=== PATIENT | male | born 1930 | race Caucasian/White ===

== ENCOUNTER 2017-10-29 05:57 | Emergency (ER) | payer MEDICARE ==
[~2017-10-29] VITALS: Ht 185.4 cm; Wt 83.9 kg
--- NOTE | 2017-10-29 07:25 | Diagnostic Imaging Report ---
History: Fall, pain Comparison studies:None Technique: Axial images were obtained from the brain and cervical spine. Coronal and sagittal images reconstructed from the axial data. Intravenous contrast: None Findings: Head CT: Scalp/skull: No abnormalities. No fractures, blastic or lytic lesions. Extra-axial spaces: No masses or fluid collections. Brain sulci: Mildly prominent. Ventricles: Mild compensatory dilatation. No hydrocephalus. Parenchyma: Few hypodensities in the supratentorial white matter are small vessel ischemic changes. No masses, hemorrhage, acute or chronic cortical vascular insults. Sellar/suprasellar region: No abnormalities. Craniocervical junction: Patent foramen magnum. No Chiari one malformation. Incidental findings: Atherosclerotic calcifications in the carotid siphons and vertebral arteries. Bilateral cataract surgery changes . Cervical spine CT: Fractures: None. Soft tissues: No gross abnormalities. Calcification of the ligamentum nuclei. Atlantoaxial articulation: Degenerative changes given by obliterated predental space, sclerosis and marginal osteophytes. Alignment: Straightening of the normal lordosis. No scoliosis. Cervicomedullary junction: No abnormalities. Patent foramen magnum. Vertebrae: No infection or neoplasm. Degenerative changes: None. Incidental findings: At the L3-4, left uncinate process hypertrophy and bilateral facet hypertrophy results in mild right and moderate left foraminal narrowing without significant canal stenosis. At C4-5, bilateral uncinate process and facet hypertrophy results in no significant canal stenosis and mild bilateral foraminal narrowing. At C5-6, bilateral uncinate process hypertrophy and facet hypertrophy results in no significant canal stenosis and moderate bilateral foraminal narrowing. Impression: Head CT: 1. No acute intracranial abnormality. 2. Mild chronic microvascular ischemic changes of the white matter and mild age-related volume loss. Cervical spine CT: 1. No acute abnormalities. 2. Cannot exclude ligament, spinal cord and or vascular abnormalities on the basis of this examination. Signed by: DR Varghese Garzon M.D. on 10/29/2017 7:21 AM
[2017-10-29] MEDS ORDERED: ACETAMINOPHEN 325 MG TAB PO PRN (09:45)
[2017-10-29] MEDS ORDERED: IBUPROFEN 200 MG TAB PO PRN (09:45)
[2017-10-29] MEDS ORDERED: ONDANSETRON HCL 4 MG ORAL DISINTEGRATING TAB PO PRN (09:45)
[2017-10-29] MEDS ORDERED: HYDROCODONE/APAP 7.5MG-325MG 1 EA TAB PO PRN (09:45)
[2017-10-29] MEDS ORDERED: CLONIDINE HCL 0.1 MG TAB PO PRN (09:45)
[2017-10-29 10:38] LABS: BASOPHILS % 0.2 % (0.0-1.0); EOSINOPHILS # (AUTO) 0.2 (0.0-0.4); EOSINOPHILS % 4.3 % (0.0-6.0); HEMATOCRIT 29.9 % (38.2-49.6); HEMOGLOBIN 10.2 g/dL (14.0-18.0); LYMPHOCYTES # (AUTO) 1.6 (1.0-3.2); LYMPHOCYTES % 33.5 % (18.0-39.1); MEAN CORPUSCULAR HEMOGLOBIN 34.7 pg (28-32); MEAN CORPUSCULAR HGB CONC 34.1 g/dL (31-35); MEAN CORPUSCULAR VOLUME 101.7 fL (81-99); MONOCYTES # (AUTO) 0.5 (0.2-0.8); MONOCYTES % 11.1 % (4.4-11.3); NEUTROPHILS # (AUTO) 2.5 (2.1-6.9); NEUTROPHILS % 50.5 % (38.7-80.0); PLATELET COUNT 120 x10e3/uL (140-360); RED BLOOD COUNT 2.94 x10e6/uL (4.3-5.7); RED CELL DISTRIBUTION WIDTH 13.7 % (11.7-14.4)
[2017-10-29 10:43] LABS: INR 1.24; PROTHROMBIN TIME 14.7 seconds (11.9-14.5)
[2017-10-29 10:44] LABS: PARTIAL THROMBOPLASTIN TIME 25.8 seconds (23.8-35.5)
[2017-10-29 10:57] LABS: ALBUMIN 3.7 g/dL (3.5-5.0); ALBUMIN/GLOBULIN RATIO 1.5 (0.8-2.0); ALKALINE PHOSPHATASE 82 IU/L (40-150); ANION GAP 13.1 mmol/L (8-16); BLOOD UREA NITROGEN 21 mg/dL (7-26); BUN/CREATININE RATIO 19 (6-25); CALCIUM 8.9 mg/dL (8.4-10.2); CARBON DIOXIDE 27 mmol/L (22-29); CHLORIDE 104 mmol/L (98-107); CREATINE KINASE 114 IU/L (30-200); CREATININE, SERUM 1.08 mg/dL (0.72-1.25); EST GLOMERULAR FILTRATION RATE > 60 ML/MIN (60-); GLUCOSE 89 mg/dL (74-118); POTASSIUM 4.1 mmol/L (3.5-5.1); SODIUM 140 mmol/L (136-145)
[2017-10-29 10:59] LABS: ALANINE AMINOTRANSFERASE < 6 IU/L (0-55)
--- NOTE | 2017-10-29 11:17 | Diagnostic Imaging Report ---
PROCEDURE: A single AP view of the chest. COMPARISON: None. INDICATIONS: FALL FINDINGS: Lines/tubes: None. Lungs: Low lung volumes. Perihilar and interstitial opacities are present. Left retrocardiac opacity. Pleura: Possible small left pleural effusion. Heart and mediastinum: Mild enlargement of the cardiomediastinal silhouette. Atherosclerotic aortic calcifications. Bones: No acute bony abnormality. Status post median sternotomy. IMPRESSION: No evidence of pneumothorax or displaced rib fracture. Low lung volumes with likely superimposed pulmonary interstitial edema. Left retrocardiac opacity can represent atelectasis or pneumonia in the appropriate clinical context. Dictated by: BLANCO SANDY M.D. on 10/29/2017 at 7:44 Electronically approved by: BLANCO SANDY M.D. on 10/29/2017 at 7:44
--- NOTE | 2017-10-29 11:17 | Diagnostic Imaging Report ---
PROCEDURE:X-RAY LEFT HUMERUS, TWO OR MORE VIEWS COMPARISON:None. INDICATIONS:UPPER ARM PAIN, FALL FINDINGS: No evidence of fracture or malalignment. Mild degenerative changes of the left glenohumeral joint and moderate degenerative changes of the left acromioclavicular joint. The soft tissues are unremarkable. Degenerative changes are present at the elbow, incompletely evaluated. CONCLUSION: No acute osseous abnormality. 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 Dictated by: BLANCO SANDY M.D. on 10/29/2017 at 7:47 Electronically approved by: BLANCO SANDY M.D. on 10/29/2017 at 7:47
--- NOTE | 2017-10-29 11:17 | Diagnostic Imaging Report ---
PROCEDURE:X-RAY PELVIS, AP VIEW COMPARISON:None. INDICATIONS:FALL FINDINGS: No evidence of fracture, malalignment, or soft tissue abnormality. Moderate degenerative changes of bilateral hips and sacroiliac joints, as well as the lower lumbar spine and pubic symphysis. CONCLUSION: No evidence of fracture or malalignment. Dictated by: BLANCO SANDY M.D. on 10/29/2017 at 7:50 Electronically approved by: BLANCO SANDY M.D. on 10/29/2017 at 7:50
== END 2017-10-29 12:56 | disposition home or self-care (01) ==
LOC: ER 05:57
DX: S00.83XA Contusion of other part of head, initial encounter (principal); S00.412A Abrasion of left ear, initial encounter; S50.12XA Contusion of left forearm, initial encounter; W17.89XA Other fall from one level to another, initial encounter; Y92.008 Other place in unspecified non-institutional (private) residence as the place of occurrence of the external cause; G20 Parkinson's disease; F02.80 Dementia in other diseases classified elsewhere, unspecified severity, without behavioral disturbance, psychotic disturbance, mood disturbance, and anxiety; I25.10 Atherosclerotic heart disease of native coronary artery without angina pectoris; E78.5 Hyperlipidemia, unspecified
CPT/HCPCS: 36415; 70450; 71045; 72125; 72170; 80053; 82550; 82553; 84484; 85025; 85610; 85730; 93005; 99284

== ENCOUNTER 2017-11-23 11:51 | Emergency (ER) | payer MEDICARE ==
[~2017-11-23] VITALS: Ht 185.4 cm; Wt 83.9 kg
[2017-11-23 12:26] LABS: BASOPHILS % 0.4 % (0.0-1.0); EOSINOPHILS # (AUTO) 0.5 (0.0-0.4); HEMATOCRIT 28.4 % (38.2-49.6); HEMOGLOBIN 9.7 g/dL (14.0-18.0); LYMPHOCYTES # (AUTO) 1.5 (1.0-3.2); LYMPHOCYTES % 31.5 % (18.0-39.1); MEAN CORPUSCULAR HEMOGLOBIN 35.1 pg (28-32); MEAN CORPUSCULAR HGB CONC 34.2 g/dL (31-35); MEAN CORPUSCULAR VOLUME 102.9 fL (81-99); MONOCYTES # (AUTO) 0.5 (0.2-0.8); MONOCYTES % 10.4 % (4.4-11.3); NEUTROPHILS # (AUTO) 2.3 (2.1-6.9); NEUTROPHILS % 46.7 % (38.7-80.0); PLATELET COUNT 114 x10e3/uL (140-360); RED BLOOD COUNT 2.76 x10e6/uL (4.3-5.7); RED CELL DISTRIBUTION WIDTH 14.1 % (11.7-14.4)
[2017-11-23 12:37] LABS: INR 1.23; PARTIAL THROMBOPLASTIN TIME 26.3 seconds (23.8-35.5); PROTHROMBIN TIME 14.6 seconds (11.9-14.5)
[2017-11-23 12:47] LABS: ALBUMIN 3.2 g/dL (3.5-5.0); ALBUMIN/GLOBULIN RATIO 1.3 (0.8-2.0); ALKALINE PHOSPHATASE 94 IU/L (40-150); ANION GAP 12.2 mmol/L (8-16); BLOOD UREA NITROGEN 20 mg/dL (7-26); BUN/CREATININE RATIO 16 (6-25); CALCIUM 8.6 mg/dL (8.4-10.2); CARBON DIOXIDE 30 mmol/L (22-29); CHLORIDE 105 mmol/L (98-107); CREATINE KINASE 46 IU/L (30-200); CREATININE, SERUM 1.26 mg/dL (0.72-1.25); EST GLOMERULAR FILTRATION RATE 54 ML/MIN (60-); GLUCOSE 113 mg/dL (74-118); POTASSIUM 4.2 mmol/L (3.5-5.1); SODIUM 143 mmol/L (136-145)
[2017-11-23 12:52] LABS: ALANINE AMINOTRANSFERASE < 6 IU/L (0-55)
--- NOTE | 2017-11-23 12:54 | Diagnostic Imaging Report ---
Examination: Single AP view of the chest. COMPARISON: AP chest 10/29/2017 INDICATION: Hypotension, decreased alertness IMPRESSION: Exam limited by patient rotation. 1. Lines and Tubes: None 2. Lungs are hypoinflated. Bibasilar opacities, which may reflect atelectasis or pneumonia. Bilateral pleural effusions. 3. Enlarged cardiac silhouette Central pulmonary venous congestion and mild perihilar interstitial edema. 4. No acute bony abnormalities. Signed by: Dr. Felipe Collazo M.D. on 11/23/2017 12:51 PM
[2017-11-23] MEDS ORDERED: NYSTATIN15 G2 TP (14:59)
[2017-11-23] MEDS ORDERED: NYSTATIN 100,000 UNITS/GM CRM 30GM TUBE TOP ONE (15:00)
[2017-11-23 15:09] LABS: BILIRUBIN,URINE NEGATIVE (NEGATIVE); CLARITY,URINE CLEAR (CLEAR); COLOR,URINE YELLOW (YELLOW); KETONES,URINE NEGATIVE (NEGATIVE); LEUKOCYTE ESTERASE ,URINE 1+ (NEGATIVE); NITRITE,URINE NEGATIVE (NEGATIVE); PROTEIN,URINE DIPSTICK NEGATIVE (NEGATIVE); URINE UROBILINOGEN 0.2 mg/dL (0.2 - 1)
[2017-11-23 15:30] LABS: BACTERIA,URINE MODERATE /HPF; EPITHELIAL CELLS,URINE RARE /LPF; RBC,URINE 0-5 /HPF (0-5)
[2017-11-23] MEDS ORDERED: CEFDINIR300 MG PO (16:19)
[2017-11-23 17:38] VITALS: BP 106/76
== END 2017-11-23 18:20 | disposition home or self-care (01) ==
LOC: ER 11:51
DX: L22 Diaper dermatitis (principal); B37.9 Candidiasis, unspecified; I95.2 Hypotension due to drugs; N39.0 Urinary tract infection, site not specified; G20 Parkinson's disease; F02.80 Dementia in other diseases classified elsewhere, unspecified severity, without behavioral disturbance, psychotic disturbance, mood disturbance, and anxiety; E78.5 Hyperlipidemia, unspecified; N18.9 Chronic kidney disease, unspecified
CPT/HCPCS: 36415; 71045; 80053; 81001; 82550; 82553; 83880; 84484; 85025; 85610; 85730; 87086